=== PATIENT | female | born 1955 | race Caucasian/White ===

== ENCOUNTER → 2017-11-08 | Outpatient (REF) | payer OTHER | LOC: M SFHCLACO 11:29 | DX: J02.9 Acute pharyngitis, unspecified (principal) ==

== ENCOUNTER → 2020-08-18 | Outpatient (CLI) | payer OTHER ==
--- NOTE | 2020-08-21 07:04 | SLEEPHOME ---
DATE: 08/18/2020 ORDERED BY: Dr. Junior Diagnostic home sleep testing was performed due to concern for the obstructive sleep apnea syndrome. For testing, a nocturnal T3 respiratory monitoring device was used. Continuous record was made of pulse, oxygen saturation, air flow, chest and abdominal strain, and body position. There was 9 hours and 59 minutes of data reviewed. There was 6 hours and 41 minutes marked as time in bed. During the interval marked time in bed, there were 314 respiratory events identified of 10 seconds in duration or greater for a respiratory event index of 46.9. The events were primarily obstructive. Baseline pulse rate 66. Pulse rate ranged 53-95. Baseline saturation was 90%. Saturations fell to 63%. Testing was performed in the both the supine and non- supine positions. IMPRESSION: Abnormal home sleep testing with repetitive respiratory events and oxygen desaturations to 63% with a respiratory event index of 46.9 is consistent with the obstructive sleep apnea syndrome. RECOMMENDATION: The patient should be encouraged to undergo formal sleep evaluation. [facility]
== END ==
LOC: M SLEEP HO 09:56
PROVIDERS: ATTEND Internal Medicine Pulmonary Disease
DX: R06.83 Snoring (principal)

== ENCOUNTER → 2020-10-06 | Outpatient (CLI) | payer OTHER ==
--- NOTE | 2020-10-07 19:05 | SLEEPCENT ---
DATE: 10/06/2020 ORDERED BY: Dr. Junior Nocturnal polysomnography was performed for the titration of pressure therapy in this patient with a clinical diagnosis of obstructive sleep apnea syndrome supported by home testing, revealing a respiratory event index of 46.9. For testing, a ResMed Quattro full-face mask of small size. There was 4 cm of water pressure applied to the circuit, and the lights were extinguished. There was 6 hours and 31 minutes of data reviewed. There was 329 minutes of sleep identified. Sleep latency was mildly prolonged at 16 minutes. REM latency was short at 31.5 minutes. Sleep architecture was good with four REM cycles. Overall sleep efficiency was 94.5%. The EKG showed a sinus rhythm with unifocal ventricular ectopy appreciated. Average heart rate 75 beats per minute. EEG showed normal waveforms for wake and sleep. Sleep progression was good as CPAP pressures were advanced. Very late in the study the patient assumed the supine position and some hypopneic respiratory events were seen. Minimal oxygen desaturation was associated with little activity in the limb leads, and remaining measures of sleep physiology were normal. IMPRESSION: Obstructive sleep apnea syndrome (G47.33). RECOMMENDATION: Nightly use of pressure therapy at 13 cm of water would seem optimal based on this study. The persistence of hypopneic respiratory events late in the test are of somewhat concern, and close clinical followup is recommended. A slight increase in pressure may be beneficial.
== END ==
LOC: M SLEEP 20:00
PROVIDERS: ATTEND Physician Assistant
DX: G47.33 Obstructive sleep apnea (adult) (pediatric) (principal); R09.02 Hypoxemia

== ENCOUNTER → 2022-03-22 | Outpatient (CLI) | payer MEDICARE | LOC: M CARPUL 13:58 | PROVIDERS: ATTEND Nurse Practitioner Family | DX: R06.00 Dyspnea, unspecified (principal) ==